=== PATIENT | female | born 1995 | race Caucasian/White ===

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

== ENCOUNTER 2017-01-31 05:30 | Inpatient (IN) | payer OTHER ==
[2017-01-31] MEDS ORDERED: ELECTROLYTE-148 SOLN 500 ML IV ONE (06:00)
[2017-01-31 06:07] VITALS: BMI 31.7
[2017-01-31] MEDS ORDERED: CITRIC ACID/SODIUM CITRATE 30 ML UNIT-DOSE CUP PO ONE (06:23)
[2017-01-31] MEDS ORDERED: ELECTROLYTE-148 SOLN 1,000 ML IV SCH (06:30)
--- NOTE | 2017-01-31 07:50 | HP ---
Past Medical History - Primary Care Physician PCP:: Braulio Rodriguez - Admission Chief Complaint: 39 weeks, GBS positve, teen , request of c/ s History of Present Illness: 21 yo f g 1p0 edc by sono 02/05/17 with hx of GBS , declines vaginal delivery, requesting repeat c/s ,patient was advised vaginal delivery, GBS prophylaxes was discussed ,insisting to have c/s, risks of c/s discussed in detail with patient, risks of DVT, bleeding, infection, risks with feature and discussed, still refuse to have vaginal delivery History Source: Patient Limitations to Obtaining History: No Limitations - Past Medical History ...: 1 ...Para: 0 ...LMP: 05/01/16 ... Weeks Gestation by Dates: 39.2 ...EDC by Dates: 02/05/17 ...EDC by Sono: 02/05/17 - Past Surgical History Hx Myomectomy: No Hx Transabdominal Cerclage: No - Smoking History Smoking history: Never smoked Have you smoked in the past 12 months: No Aproximately how many cigarettes per day: 0 - Alcohol/Substance Use Hx Alcohol Use: No - Social History Usual Living Arrangement: Yes: With Spouse History of Recent Travel: No Home Medications - Allergies Allergies/Adverse Reactions: Allergies Allergy/AdvReac Type Severity Reaction Status Date / Time No Known Allergies Allergy Verified 01/19/17 23:21 - Home Medications Home Medications: Ambulatory Orders Vit Calc,Iron,Folic [ Vitamins] 1 each PO DAILY 01/19/17 Review of Systems - Review of Systems Constitutional: reports: No Symptoms Eyes: reports: No Symptoms HENT: reports: No Symptoms Neck: reports: No Symptoms Cardiovascular: reports: No Symptoms Respiratory: reports: No Symptoms Gastrointestinal: reports: No Symptoms Genitourinary: reports: No Symptoms Breasts: reports: No Symptoms Reported Musculoskeletal: reports: No Symptoms Integumentary: reports: No Symptoms Neurological: reports: No Symptoms Endocrine: reports: No Symptoms Hematology/Lymphatic: reports: No Symptoms Psychiatric: reports: No Symptoms 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 - Maternity Vital Signs: Vital Signs Temperature 99 F 01/31/17 05:30 Pulse Rate 93 H 01/31/17 05:30 Respiratory Rate 20 01/31/17 05:30 Blood Pressure 137/61 01/31/17 05:30 O2 Sat by Pulse Oximetry (%) Constitutional: Yes: Well Nourished, No Distress, Calm Eyes: Yes: WNL, Conjunctiva Clear, EOM Intact HENT: Yes: WNL, Atraumatic, Normocephalic Neck: Yes: WNL, Supple, Trachea Midline Cardiovascular: Yes: WNL, Regular Rate and Rhythm Breast(s): Yes: WNL - Abdominal Exam/OB Fundal Height: 40 Number of Fetuses: Single Presentation: Vertex Contractions: No Regularity: Irritability Intensity: Unaware Monitor Mode: External Heart Rate Location: [facility] Category: I Accelerations: Uniform Decelerations: None - Vaginal Exam/OB Vaginal Bleediing: No Speculum Exam: No Dilatation (cm): closed Effacement (%): long Amniotic Membrane Status: Intact Presentation: Vertex/Position Station: -4 - 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 Edema: Yes Edema: LLE: 1+, RLE: 1+ Deep Tendon Reflex Grade: Normal +2 Psychiatric: Yes: WNL Hemorrhage Risk Assessment - Risk Factors Medium Risk Factors: Yes: None High Risk Factors: Yes: None Risk Score: 1 Risk Level: Medium Risk Problem List - Problems (1) with 39 completed weeks gestation Code(s): Z3A.39 - 39 WEEKS GESTATION OF (2) Group B streptococcal infection during Code(s): O98.819 - OTH MATERNAL INFEC/PARASTC DISEASES COMP PREG, UNSP TRI B95.1 - STREPTOCOCCUS, GROUP B, CAUSING DISEASES CLASSD ELSWHR (3) Delivery by elective section Code(s): O82 - ENCOUNTER FOR DELIVERY WITHOUT INDICATION (4) Large for gestational age fetus affecting mother, antepartum, third trimester, single gestation Code(s): O36.63X0 - MATERNAL CARE FOR EXCESS GROWTH, THIRD TRIMESTER, UNSP Assessment/Plan c/section risks discussed in detail
[2017-01-31] MEDS ORDERED: oxyCODONE HCL 5 MG TABLET PO PRN (08:43)
[2017-01-31] MEDS ORDERED: diphenhydrAMINE HCL 25 MG CAPSULE (FP) PO PRN (08:43)
[2017-01-31] MEDS ORDERED: BENZOCAINE 20% 57 GM BOTTLE TP PRN (08:43)
[2017-01-31] MEDS ORDERED: METHYLERGONOVINE MALEATE 0.2 MG/1 ML AMP IM PRN (08:43)
[2017-01-31] MEDS ORDERED: WITCH HAZEL 50% (TUCKS) 40 PAD/JAR PAD TP PRN (08:43)
[2017-01-31] MEDS ORDERED: BENZOCAINE 28 GM HEMORRHOIDAL OINTMENT PR PRN (08:43)
[2017-01-31] MEDS: OXYTOCIN 20 UNITS in 0.9% NS 1,000 ML IV SCH ×2 (08:45→15:37)
[2017-01-31] MEDS ORDERED: DEXTROSE 5%-LACTATED RINGERS 1,000 ML IV SCH (08:45)
[2017-01-31 08:48] LABS: ARTERIAL BLOOD GAS BASE EXCESS -0.7 meq/l (-2-2); ARTERIAL BLOOD GAS HCO3 26.2 meq/L (22-26)
[2017-01-31 08:50] LABS: ART PUNCT SITE OTHER; ARTERIAL BLOOD GAS BASE EXCESS -1.1 meq/l (-2-2); ARTERIAL BLOOD GAS HCO3 23.6 meq/L (22-26); ARTERIAL BLOOD GAS PO2 12.6 mmHg (80-100); ARTERIAL BLOOD GAS PO2 28.5 mmHg (80-100); ARTERIAL BLOOD GAS pH 7.37 (7.35-7.45); LPM/O2% 21%; PT. ON O2? n; TYPE OF O2 R/A
[2017-01-31 08:52] LABS: ART PUNCT SITE OTHER; LPM/O2% 21%; PT. ON O2? NO; TYPE OF O2 R/A
[2017-01-31 08:53] LABS: ARTERIAL BLD GAS O2 SATURATION 62.6 % (90-98.9)
[2017-01-31] MEDS ORDERED: ONDANSETRON 4 MG/2 ML VIAL IVPB PRN (09:02)
[2017-01-31] MEDS ORDERED: ACETAMINOPHEN 1000 MG/100 ML VIAL (NON FORMULARY) IVPB ONE (09:04)
[2017-01-31] MEDS ORDERED: CEFAZOLIN 1 GM/D5W 50 ML IVPB SCH (10:00)
[2017-01-31] MEDS: IBUPROFEN 800 MG/8 ML IJ IVPB PRN ×2 (12:00→21:30)
[2017-01-31] MEDS ORDERED: ceFAZolin SODIUM 1 GM VIAL ONE ×2 (16:49→23:50)
[2017-01-31] MEDS ORDERED: DEXTROSE 5%-WATER - 50 ML IVPB ONE ×2 (16:49→23:50)
[2017-01-31] MEDS: CEFAZOLIN 1 GM in DEXTROSE 5%-WATER - 50 ML IVPB SCH (16:54)
[2017-02-01] MEDS: CEFAZOLIN 1 GM in DEXTROSE 5%-WATER - 50 ML IVPB SCH (00:08)
[2017-02-01] MEDS: IBUPROFEN 600 MG TABLET (FP) PO PRN ×3 (04:08→20:35)
[2017-02-01] MEDS: SIMETHICONE 80 MG TAB.CHEW (FP) PO PRN ×2 (04:08→20:35)
[2017-02-01 07:42] LABS: BASOPHIL 0.5 % (0-2.0); EOSINOPHIL 3.4 % (0-4.5); MCH 27.6 pg (25.7-33.7); MCHC 33.6 g/dl (32.0-36.0); MEAN CELL VOLUME 82.1 fl (80-96); MEAN PLT VOLUME 8.4 fl (7.5-11.1); NEUTROPHILS 69.4 % (42.8-82.8); PLATELET COUNT 212 K/MM3 (134-434); RDW 13.9 % (11.6-15.6); WHITE BLOOD COUNT 10.6 K/mm3 (4.0-10.0)
[2017-02-01] MEDS ORDERED: BISACODYL 10 MG SUPP.RECT PR PRN (08:43)
--- NOTE | 2017-02-01 10:03 | PN ---
Post Progress Note - Subjective Subjective: 21 yo Para 1, status post primary , seen and evaluated. Doing well. Post Day: 1 Type of Delivery: Primary C/S Vital Signs: Vital Signs Temperature 98 F 02/01/17 06:24 Pulse Rate 60 02/01/17 06:24 Respiratory Rate 18 02/01/17 08:00 Blood Pressure 109/60 02/01/17 06:24 O2 Sat by Pulse Oximetry (%) 100 01/31/17 10:10 Breast Exam: Yes: Soft Uterus: Yes: Fundus Firm Incision: Yes: Dressing dry and intact Abdomen/GI: Yes: Abdomen soft, Tolerating PO Lochia: Yes: Rubra Lochia, amount: Small Extremities: Yes: Calves non-tender Perineum: Yes: Intact Activity: Ambulating - Labs Labs: CBC WBC 10.6 K/mm3 (4.0-10.0) H 02/01/17 06:00 RBC 3.52 M/mm3 (3.60-5.2) L 02/01/17 06:00 Hgb 9.7 GM/dL (10.7-15.3) L D 02/01/17 06:00 Hct 28.9 % (32.4-45.2) L D 02/01/17 06:00 MCV 82.1 fl (80-96) 02/01/17 06:00 MCH 27.6 pg (25.7-33.7) 02/01/17 06:00 MCHC 33.6 g/dl (32.0-36.0) 02/01/17 06:00 RDW 13.9 % (11.6-15.6) 02/01/17 06:00 Plt Count 212 K/MM3 (134-434) 02/01/17 06:00 MPV 8.4 fl (7.5-11.1) 02/01/17 06:00 Neutrophils % 69.4 % (42.8-82.8) 02/01/17 06:00 Lymphocytes % 18.0 % (8-40) 02/01/17 06:00 Monocytes % 8.7 % (3.8-10.2) 02/01/17 06:00 Eosinophils % 3.4 % (0-4.5) D 02/01/17 06:00 Basophils % 0.5 % (0-2.0) 02/01/17 06:00 Assessment/Plan Status post primary Stable Ambulation Analgesia PRN pain Continue routine Post op care
[2017-02-01] MEDS: oxyCODONE HCL 5 MG TABLET PO PRN ×2 (12:39→20:35)
--- NOTE | 2017-02-01 13:08 | PN ---
Progress Note (short form) - Note Progress Note: ANESTHESIOLOGY POST-OP CHECK 21F s/p under spinal anesthesia, POD #1: No acute complaints. Denies N /V, backache, headache. Pain 6/10 and tolerable. Voiding, ambulating, tolerating PO. Vital Signs Temperature 97.6 F 02/01/17 10:00 Pulse Rate 95 H 02/01/17 10:00 Respiratory Rate 20 02/01/17 10:00 Blood Pressure 130/70 02/01/17 10:00 O2 Sat by Pulse Oximetry (%) 100 01/31/17 10:10 Active Medications Benzocaine (Americaine Ointment -) 1 applic ND PRN PRN PRN Reason: PAIN Benzocaine (Americaine 20% [place] -) 1 spray TP PRN PRN PRN Reason: PAIN Bisacodyl (Dulcolax Suppository -) 10 mg ND PRN PRN PRN Reason: CONSTIPATION Diphenhydramine HCl (Benadryl -) 25 mg PO Q8H PRN PRN Reason: FOR ITCHING Diphenhydramine HCl (Benadryl Injection -) 25 mg IVPUSH Q4H PRN PRN Reason: Pruritis Enoxaparin Sodium (Lovenox -) 40 mg SQ DAILY ALICE Parenteral Electrolytes (Plasma-Lyte 148 -) 1,000 mls @ 125 mls/hr IV ASDIR ALICE Last Admin: 01/31/17 07:00 Dose: 125 mls/hr Dextrose/Lactated Ringer's (D5-Lr -) 1,000 mls @ 125 mls/hr IV ASDIR [facility] Ibuprofen (Motrin -) 600 mg PO Q4H PRN PRN Reason: PAIN Last Admin: 02/01/17 04:08 Dose: 600 mg Methylergonovine Maleate (Methergine Injection -) 0.2 mg IM Q4H PRN PRN Reason: EXCESSIVE BLEEDING Oxycodone HCl (Roxicodone -) 5 mg PO Q4H PRN PRN Reason: PAIN LEVEL 1-5 Oxycodone HCl (Roxicodone -) 10 mg PO Q4H PRN PRN Reason: PAIN LEVEL 6-10 Last Admin: 02/01/17 12:39 Dose: 10 mg Senna/Docusate Sodium (Pericolace -) 2 tablet PO HS PRN PRN Reason: CONSTIPATION Simethicone (Mylicon -) 80 mg PO Q4H PRN PRN Reason: GAS Last Admin: 02/01/17 04:08 Dose: 80 mg Witch Kim/Glycerin (Tucks Pads -) 1 pad TP PRN PRN PRN Reason: PAIN Gen: awake, alert No apparent anesthesia complications. Pain controlled. Continue management as per primary team.
[2017-02-01] MEDS: SENNOSIDES/DOCUSATE COMBO (SENNA PLUS) TABLET (UD) PO PRN (20:35)
[2017-02-02] MEDS: ENOXAPARIN NA (PORCINE) 40 MG/0.4 ML DISP.SYRIN SQ SCH (09:26)
[2017-02-02] MEDS: IBUPROFEN 600 MG TABLET (FP) PO PRN ×3 (09:26→22:19)
[2017-02-02] MEDS: SIMETHICONE 80 MG TAB.CHEW (FP) PO PRN ×3 (09:27→22:19)
[2017-02-02] MEDS: oxyCODONE HCL 5 MG TABLET PO PRN ×3 (09:28→22:19)
--- NOTE | 2017-02-02 21:39 | PN ---
Post Progress Note - Subjective Subjective: 21 yo Para 1, status post , seen and evaluated. She's doing well. Post Day: 2 Type of Delivery: Primary C/S Vital Signs: Vital Signs Temperature 97.9 F 02/02/17 09:17 Pulse Rate 96 H 02/02/17 09:17 Respiratory Rate 20 02/02/17 09:17 Blood Pressure 122/67 02/02/17 09:17 O2 Sat by Pulse Oximetry (%) 100 01/31/17 10:10 Breast Exam: Yes: Soft Uterus: Yes: Fundus Firm Incision: Yes: [place]ina intact Abdomen/GI: Yes: Abdomen soft, Tolerating PO Lochia: Yes: Rubra Lochia, amount: Small Extremities: Yes: Calves non-tender Perineum: Yes: Intact Activity: Ambulating - Labs Labs: CBC WBC 10.6 K/mm3 (4.0-10.0) H 02/01/17 06:00 RBC 3.52 M/mm3 (3.60-5.2) L 02/01/17 06:00 Hgb 9.7 GM/dL (10.7-15.3) L D 02/01/17 06:00 Hct 28.9 % (32.4-45.2) L D 02/01/17 06:00 MCV 82.1 fl (80-96) 02/01/17 06:00 MCH 27.6 pg (25.7-33.7) 02/01/17 06:00 MCHC 33.6 g/dl (32.0-36.0) 02/01/17 06:00 RDW 13.9 % (11.6-15.6) 02/01/17 06:00 Plt Count 212 K/MM3 (134-434) 02/01/17 06:00 MPV 8.4 fl (7.5-11.1) 02/01/17 06:00 Neutrophils % 69.4 % (42.8-82.8) 02/01/17 06:00 Lymphocytes % 18.0 % (8-40) 02/01/17 06:00 Monocytes % 8.7 % (3.8-10.2) 02/01/17 06:00 Eosinophils % 3.4 % (0-4.5) D 02/01/17 06:00 Basophils % 0.5 % (0-2.0) 02/01/17 06:00 Assessment/Plan Status post primary Stable Ambulation Analgesia PRN pain Continue routine Post op care Consider D/C home tomorrow
[2017-02-02] MEDS: SENNOSIDES/DOCUSATE COMBO (SENNA PLUS) TABLET (UD) PO PRN (22:20)
[2017-02-03 07:28] LABS: BASOPHIL 0.6 % (0-2.0); MCH 27.3 pg (25.7-33.7); MCHC 33.3 g/dl (32.0-36.0); MEAN PLT VOLUME 7.8 fl (7.5-11.1); PLATELET COUNT 262 K/MM3 (134-434); RDW 13.9 % (11.6-15.6); WHITE BLOOD COUNT 8.5 K/mm3 (4.0-10.0)
--- NOTE | 2017-02-03 07:54 | DS ---
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 Vital Signs: Vital Signs Temperature 98.6 F 02/02/17 22:00 Pulse Rate 85 02/02/17 22:00 Respiratory Rate 18 02/02/17 22:00 Blood Pressure 135/70 02/02/17 22:00 O2 Sat by Pulse Oximetry (%) 100 01/31/17 10:10 Constitutional: Yes: Well Nourished Eyes: Yes: Conjunctiva Clear HENT: Yes: Atraumatic Neck: Yes: Supple, Trachea Midline Cardiovascular: Yes: Regular Rate and Rhythm Respiratory: Yes: Regular, CTA Bilaterally Gastrointestinal: Yes: Normal Bowel Sounds Vaginal Exam: Yes: Normal Cervix: Yes: Normal Uterus: Yes: Normal Wound/Incision: Yes: Well Approximated Neurological: Yes: Alert, Oriented ...Motor Strength: WNL Psychiatric: Yes: Alert, Oriented Delivery - Delivery Type of Anesthesia: Spinal Episiotomy/Laceration: None EBL (cc): 500 Delivery, Single - Stages of Labor Date of Delivery: 01/31/17 Time of Delivery: 08:12 Time Placenta Delivered: 08:13 - 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 Intern Present: No Infant Gender: Male Weight: 8 lb 13 oz Position: Left, OT Total Hours ROM (Hrs/Mins): 0/2 - 1 Minute Total Score: 9 5 Minutes Total Score: 9 - [place] Feeding Plan Initial Plan: Exclusive throughout hospitalization Discharge Summary Reason For Visit: SCHEDULED Current Active Problems Delivery by elective section (Acute) Group B streptococcal infection during (Acute) Large for gestational age fetus affecting mother, antepartum, third trimester, single gestation (Acute) with 39 completed weeks gestation (Acute) Procedures: Principal: Primary Low transverse Hospital Course: Routine Post op care - Instructions Diet, Activity, Other Instructions: Regular diet Wound care F/U in clinic in one week Disposition: HOME - Home Medications Comprehensive Discharge Medication List: Ambulatory Orders Vit Calc,Iron,Folic [ Vitamins] 1 each PO DAILY 01/19/17
[2017-02-03 08:15] VITALS: BP 110/48; PULSE 78; TEMP 98.5
[2017-02-03] MEDS: SIMETHICONE 80 MG TAB.CHEW (FP) PO PRN (10:32)
[2017-02-03] MEDS: IBUPROFEN 600 MG TABLET (FP) PO PRN (10:33)
[2017-02-03] MEDS: ENOXAPARIN NA (PORCINE) 40 MG/0.4 ML DISP.SYRIN SQ SCH (10:34)
[2017-02-03] MEDS ORDERED: oxyCODONE HCL 5 MG TABLET ONE (10:39)
--- NOTE | 2017-02-04 08:37 | OP ---
DATE OF OPERATION: 01/31/2017 PREOPERATIVE DIAGNOSIS: at 39 weeks, large for gestational age, group B streptococcus positive, request of section. POSTOPERATIVE DIAGNOSIS: at 39 weeks, large for gestational age, group B streptococcus positive, request of section. PROCEDURE: Primary low segment transverse section. SURGEON: Braulio Rodriguez MD BATCH ROOM TECHNICIAN: CODY Barone ANESTHESIA: Spinal. ESTIMATED BLOOD LOSS: 500 mL. OPERATIVE PROCEDURE: The patient was taken to the operating room, had adequate spinal anesthesia. Abdomen and perineum were prepped and draped. Pfannenstiel abdominal incision was made. Abdominal wall was cut layer by layer until peritoneum was exposed and incised. Upon entering the abdominal cavity, lower uterine segment was identified and ureterovesical fold of peritoneum established. Bladder was pushed down. Then a low transverse uterine incision was made. Incision extended laterally. The amniotic sac was entered, clear fluid, head delivered. Nasopharynx was suctioned and live baby was delivered without any difficulty. Placenta was delivered manually. Uterine cavity was cleaned out of any tissue. Uterine incision was closed in 2 layers, first layer 0 Biosyn continuous suture, the second layer with 0 Biosyn imbricating the first layer. Bladder flap was closed with 0 Biosyn continuous suture. Both tubes and ovaries were checked and normal. No active bleeding was seen. All the lap pads, sponge counts, instrument counts were correct. Then peritoneum was closed with 0 Biosyn continuous suture. Muscles were brought together with interrupted suture of 0 Biosyn. Fascia was closed with 0 Biosyn continuous suture, subcutaneous fat with interrupted supine of 0 Biosyn, and the skin was closed with denia. Patient tolerated the procedure well, left the OR in good condition. Arnaldo [id number]
--- NOTE | 2017-02-06 08:45 | PATH ---
Surgical Pathology Report Patient Name: LITZY SINGH Med. Rec. #: [id number] /Age/Gender: 1995 (Age: 21) / F Account: [id number] Location: [facility] OBS/AUTOMATION QA TESTER Taken: 01/31/2017 Received: 02/03/2017 Reported: 02/06/2017 Physicians: Braulio Rodriguez M.D. Specimen(s) Received PLACENTA Clinical History , 39.2 weeks, elective c/section Primary c/section Final Diagnosis PLACENTA, DELIVERY: FOCALLY DISRUPTED THIRD TRIMESTER PLACENTA WITH MODERATE PREVILLOUS, PERIVILLOUS, AND PRECHORIONIC FIBRIN DEPOSITION, THREE VESSEL UMBILICAL CORD, AND UNREMARKABLE PLACENTAL MEMBRANES. Electronically Signed Yan Rebollar M.D. Gross Description The specimen is received fresh, labeled "placenta" and is a 685 gram, 17.0 x 16.0 x 2.6 cm placenta with attached membranes and umbilical cord. The attached membranes are veras, translucent with focal opacities and insert marginally. The umbilical cord measures 17 cm in length and averages 1.3 cm in diameter. The cord inserts eccentrically, 4.5 cm to the nearest margin. No true knots or strictures are identified. Cut surface of the umbilical cord reveals 3 vessels. The surface is arias-blue with fibrin deposition and appropriate caliber vessels. The maternal surface is red-brown with focal defects. Sectioning reveals red-brown, spongy parenchyma. No focal lesions are identified. Ed Educational Aide sections are submitted in three cassettes as follows: 1- membrane rolls and umbilical cord; 2-3- full thickness sections of placenta. 02/04/2017 [facility]02/04/2017
== END 2017-02-03 15:00 | disposition home or self-care (01) | DRG 540 ==
LOC: JLDR 05:30 → J3W 14:31
PROVIDERS: ADMIT Obstetrics & Gynecology; ATTEND Obstetrics & Gynecology
PROC: 10D00Z1 Extraction of Products of Conception, Low, Open Approach (ICD-10-PCS; principal; 2017-01-31)
DX: O36.63X0 Maternal care for excessive fetal growth, third trimester, not applicable or unspecified (principal); Z3A.39 39 weeks gestation of pregnancy; Z22.330 Carrier of Group B streptococcus; Z37.0 Single live birth
CPT/HCPCS: 36415; 36600; 82803; 85025; 88307-TC

== ENCOUNTER 2017-02-19 15:31 | Emergency (ER) | payer OTHER ==
[2017-02-19 16:09] VITALS: BP 113/78; PULSE 84; TEMP 98.2; BMI 28.8
[2017-02-19 16:50] LABS: BASOPHIL 0.5 % (0-2.0); EOSINOPHIL 3.5 % (0-4.5); MCH 26.8 pg (25.7-33.7); MCHC 32.6 g/dl (32.0-36.0); MEAN CELL VOLUME 82.1 fl (80-96); NEUTROPHILS 79.7 % (42.8-82.8); PLATELET COUNT 350 K/MM3 (134-434); RDW 15.6 % (11.6-15.6); WHITE BLOOD COUNT 14.5 K/mm3 (4.0-10.0)
--- NOTE | 2017-02-19 16:51 | PDOC ---
History of Present Illness - General Chief Complaint: Wound Stated Complaint: POST-SURG COMPLICATIONS, BLEEDING Time Seen by Provider: 02/19/17 16:21 History Source: Patient Exam Limitations: No Limitations - History of Present Illness Initial Comments: 02/19/17 16:47 Patient is a 21-year-old female, 2 weeks ago presents for evaluation of scar reports green discharge from right side 3 days ago.. Patient reports also not feeling well vomited once today no fever, is complaining of lower abdominal discomfort near area of . Has not taken any pain medication. No diarrhea, no dizziness, no neurosensory deficits. Denies any chest pain or shortness of breath. Normal BM. Past Medical History: Denies. Allergies: No known allergies Medications: Oxycodone when necessary last taken one week ago Family History: Non-contributory Social History: Denies smoking, alcohol use, or IVDU Vital signs on arrival are notable for pulse of 84. Review of Systems GENERAL/CONSTITUTIONAL: No fever or chills. No weakness. No weight change. HEAD, EYES, EARS, NOSE AND THROAT: No change in vision. No ear pain or discharge. No sore throat. CARDIOVASCULAR: No chest pain or shortness of breath. RESPIRATORY: No cough, wheezing, or hemoptysis. GASTROINTESTINAL: Vomited once, no nausea upon arrival, no diarrhea or constipation. No rectal bleeding. GENITOURINARY: No dysuria, frequency, or change in urination. MUSCULOSKELETAL: No joint or muscle swelling or pain. No neck or back pain. SKIN AND BREASTS: scar with drainage 3 days ago to right side. With edematous border of scar with no induration. NEUROLOGIC: No headache, vertigo, loss of consciousness, or loss of sensation. HEMATOLOGIC/LYMPHATIC: No anemia, easy bleeding, or history of blood clots. ALLERGIC/IMMUNOLOGIC: No hives or skin allergy. No latex allergy. 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: GENERAL: The patient is awake, alert, and fully oriented, in no acute distress. EYES: Pupils equal, round and reactive to light, extraocular movements intact, sclera anicteric, conjunctiva clear. ENT: Ears normal, nares patent, oropharynx clear without exudates. Moist mucous membranes. No uvula deviation NECK: Normal range of motion, supple without lymphadenopathy, JVD, or masses. LUNGS: Breath sounds equal, clear to auscultation bilaterally. No wheezes, and no crackles. HEART: Regular rate and rhythm, normal S1 and S2 without murmur, rub or gallop. ABDOMEN: Soft, tender to mid lower quadrant. Normoactive bowel sounds. No guarding, no rebound. No masses. No bruising or abrasions MUSCULOSKELETAL: Normal range of motion, no edema. No clubbing or cyanosis. No cords, erythema, or tenderness. No CVA Tenderness with fist. NEUROLOGICAL: Cranial nerves II through XII grossly intact. Normal speech, normal gait. SKIN: Warm, Dry, normal turgor, no rashes or lesions noted. scar is intact upon assessment there is no green drainage noted. No foul odor. No erythema, warmth or induration. Past History - Past Medical History Allergies/Adverse Reactions: Allergies Allergy/AdvReac Type Severity Reaction Status Date / Time No Known Allergies Allergy Verified 02/19/17 16:09 Home Medications: Ambulatory Orders Vit Calc,Iron,Folic [ Vitamins] 1 each PO DAILY 01/19/17 Dicloxacillin Sodium 500 mg PO TID #30 capsule 02/19/17 Asthma: No Cancer: No Cardiac Disorders: No Diabetes: No HTN: No Seizures: No Thyroid Disease: No - Reproductive History (#): 1 Para: 0 - Psycho/Social/Smoking Cessation Hx Suicidal Ideation: No Smoking History: Current some day smoker Have you smoked in the past 12 months: No Number of Cigarettes Smoked Daily: 5 Information on smoking cessation initiated: No Hx Alcohol Use: No Drug/Substance Use Hx: No Substance Use Type: None Hx Substance Use Treatment: No *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 - Vital Signs Last Vital Signs Temp Pulse Resp BP Pulse Ox 98.2 F 84 20 113/78 98 02/19/17 16:06 02/19/17 16:06 02/19/17 16:06 02/19/17 16:06 02/19/17 16:06 ED Treatment Course - LABORATORY CBC & Chemistry Diagram: 02/19/17 16:40 02/19/17 16:40 Medical Decision Making - Medical Decision Making 02/19/17 16:51 A/P: Patient here for evaluation of possible wound dehiscence however based upon clinical examination there is no evidence of cellulitis or wound dehiscence. There is no drainage. Patient states she did shower today and has not had any discoloration or drainage. Non malodorous. Because of patient vomiting once and lower abdominal discomfort. Urinalysis, urine culture, CBC and BMP. 02/19/17 17:25 Laboratory Results - last 24 hr 02/19/17 02/19/17 02/19/17 16:40 16:40 16:40 WBC 14.5 H D RBC 4.81 D Hgb 12.9 D Hct 39.5 D MCV 82.1 MCH 26.8 MCHC 32.6 RDW 15.6 D Plt Count 350 D MPV 8.0 Neutrophils % 79.7 D Lymphocytes % 11.4 D Monocytes % 4.9 Eosinophils % 3.5 Basophils % 0.5 Sodium 140 Potassium 4.1 Chloride 106 Carbon Dioxide 27 D Anion Gap 7 L BUN 9 Creatinine 0.6 Random Glucose 82 Calcium 8.7 Urine Color Yellow Urine Appearance Clear Urine pH 6.0 Urine Protein Negative Urine Glucose (UA) Negative Urine Ketones Negative Urine Blood Negative Urine Nitrite Negative Urine Bilirubin Negative Urine Urobilinogen Negative Urine analysis is negative, patient with elevated wbc's case discussed with Dr. Hwang. Dr. Guevara to care Patient while she was admitted during the C- section. Because of drainage from wound, will give 1 g of Ancef while in emergency department discharged on dicloxacillin 500 mg by mouth twice a day with strict follow-up with Dr. Rodriguez in 3 days. If any fever, increased pain, or any other concerns patient to return immediately to emergency department. 02/19/17 18:36 *DC/Admit/Observation/Transfer Diagnosis at time of Disposition: section wound complication - Discharge Dispostion Disposition: HOME Condition at time of disposition: Good Admit: No - Prescriptions Prescriptions: Dicloxacillin Sodium 500 mg PO TID #30 capsule - Referrals Referrals: Braulio Rodriguez MD [Staff Physician] - - Patient Instructions Additional Instructions: Please monitor area for any increased redness swelling or signs of infection Antibiotics as ordered until completed If fever, increased pain, and generalized malaise, or feeling of not getting better return to ER recommend follow-up with Dr. Rodriguez within a week
[2017-02-19 16:52] LABS: URINE APPEARANCE CLEAR; URINE BILIRUBIN NEGATIVE (NEGATIVE); URINE BLOOD NEGATIVE (NEGATIVE); URINE COLOR YELLOW; URINE GLUCOSE (UA) NEGATIVE (NEGATIVE); URINE KETONE NEGATIVE (NEGATIVE); URINE LEUK ESTERASE NEGATIVE (NEGATIVE); URINE NITRITE NEGATIVE (NEGATIVE); URINE PROTEIN NEGATIVE (NEGATIVE); URINE UROBILINOGEN NEGATIVE mg/dL (0.2-1.0)
[2017-02-19 17:10] LABS: ANION GAP 7 (8-16); CALCIUM 8.7 mg/dL (8.5-10.1); CO2 27 mmol/L (21-32); CREATININE 0.6 mg/dL (0.55-1.02); GLUCOSE,RANDOM 82 mg/dL (74-106)
[2017-02-19] MEDS ORDERED: CEFAZOLIN 1 GM in DEXTROSE 5%-WATER - 50 ML IVPB ONE (17:16)
[2017-02-19] MEDS ORDERED: CEFAZOLIN (PRE-DOCKED) 50 ML IVPB ONE (17:37)
== END 2017-02-19 18:47 | disposition home or self-care (01) ==
LOC: JERFT 15:31
DX: O86.0 Infection of obstetric surgical wound (principal)
CPT/HCPCS: 36415; 80048; 81003; 85025; 87086; 96365; 99281-25

== ENCOUNTER 2017-04-10 22:32 | Emergency (ER) | payer OTHER ==
[2017-04-10 22:43] VITALS: BP 127/56; PULSE 94; TEMP 98.2; BMI 28.1
[2017-04-10 23:59] LABS: BASOPHIL 0.7 % (0-2.0); EOSINOPHIL 2.7 % (0-4.5); MCH 26.8 pg (25.7-33.7); MCHC 33.8 g/dl (32.0-36.0); MEAN CELL VOLUME 79.3 fl (80-96); MEAN PLT VOLUME 7.6 fl (7.5-11.1); NEUTROPHILS 62.6 % (42.8-82.8); PLATELET COUNT 300 K/MM3 (134-434); WHITE BLOOD COUNT 7.6 K/mm3 (4.0-10.0)
--- NOTE | 2017-04-11 00:08 | PDOC ---
History of Present Illness - General Chief Complaint: Vaginal Bleeding Stated Complaint: vaginal bleeding Time Seen by Provider: 04/10/17 23:08 History Source: Patient Exam Limitations: No Limitations - History of Present Illness Initial Comments: 04/10/17 23:39 The patient is a 21F with no PMH who presents to the ED with complaints of vaginal bleeding. The patient states that she has had on and off bleeding for 3 months, since her . She states that her bleeding is every other day or every 2 days for 3 months. The most she has bled is 2-3 pads. She denies any vaginal discharge, pain from her site, CP, SOB, fever, chills, nausea , vomiting, and new rash. Past History - Past Medical History Allergies/Adverse Reactions: Allergies Allergy/AdvReac Type Severity Reaction Status Date / Time No Known Allergies Allergy Verified 02/19/17 16:09 Home Medications: Ambulatory Orders Vit Calc,Iron,Folic [ Vitamins] 1 each PO DAILY 01/19/17 Dicloxacillin Sodium 500 mg PO TID #30 capsule 02/19/17 Asthma: No Cancer: No Cardiac Disorders: No COPD: No Diabetes: No HTN: No Seizures: No Thyroid Disease: No - Reproductive History (#): 1 Para: 0 - Suicide/Smoking/Psychosocial Hx Smoking History: Current some day smoker Have you smoked in the past 12 months: Yes Number of Cigarettes Smoked Daily: 2 Information on smoking cessation initiated: No Hx Alcohol Use: No Drug/Substance Use Hx: No Substance Use Type: None Hx Substance Use Treatment: No Review of Systems - Review of Systems Able to Perform ROS?: Yes Comments:: 04/11/17 00:22 GENERAL/CONSTITUTIONAL: No fever or chills. No weakness. HEAD, EYES, EARS, NOSE AND THROAT: No change in vision. No ear pain or discharge. No sore throat. GASTROINTESTINAL: No nausea, vomiting, diarrhea, constipation, or abdominal pain. GENITOURINARY: Positive for vaginal bleeding. No dysuria, frequency, hematuria, or change in urination. CARDIOVASCULAR: No chest pain, palpitations, or lightheadedness. RESPIRATORY: No cough, wheezing, shortness of breath, or hemoptysis. MUSCULOSKELETAL: No joint or muscle swelling or pain. No neck or back pain. SKIN: No rash or lesions. NEUROLOGIC: No headache, numbness, tingling, weakness, loss of consciousness, or change in strength/sensation. ENDOCRINE: No increased thirst. No abnormal weight change. HEMATOLOGIC/LYMPHATIC: No anemia, easy bleeding, or history of blood clots. ALLERGIC/IMMUNOLOGIC: No hives or skin allergy. Is the patient limited Peruvian proficient: No *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 - Vital Signs Last Vital Signs Temp Pulse Resp BP Pulse Ox 98.2 F 94 H 18 127/56 100 04/10/17 22:40 04/10/17 22:40 04/10/17 22:40 04/10/17 22:40 04/10/17 22:40 - 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 Comments: 04/11/17 00:22 GENERAL: Well developed, well nourished. Awake and alert. No acute distress. HEENT: Normocephalic, atraumatic. Hearing grossly normal. Moist mucous membranes. Oropharynx is clear. NECK: Supple. Full ROM. No JVD. CARDIOVASCULAR: Regular rate and rhythm. No murmurs, rubs, or gallops. Distal pulses are 2+ and symmetric. PULMONARY: No evidence of respiratory distress. Lungs clear to auscultation bilaterally. No wheezing, rales or rhonchi. ABDOMINAL: Soft. Non-tender. Non-distended. No rebound or guarding. No organomegaly. Normoactive bowel sounds. GENITOURINARY: No CVA tenderness bilaterally. MUSCULOSKELETAL: Normal range of motion at all joints. No bony deformities or tenderness. EXTREMITIES: No cyanosis. No clubbing. No edema. No calf tenderness. SKIN: Warm and dry. Normal capillary refill. No rashes. No jaundice. NEUROLOGICAL: Alert, awake, appropriate. Normal speech. Gait is normal without ataxia. PSYCHIATRIC: Cooperative. Good eye contact. Appropriate mood and affect. ED Treatment Course - LABORATORY CBC & Chemistry Diagram: 04/10/17 23:45 04/10/17 23:45 - RADIOLOGY Radiology Studies Ordered: Category Date Time Status CHEST PA & LAT [RAD] Stat Radiology 04/10/17 23:27 Ordered Medical Decision Making - Medical Decision Making 04/11/17 00:23 The patient is a 21F s/p 3 months ago who is presenting with intermittent vaginal bleeding. I am not acutely concerned about the bleeding but will rule out occult causes such as fibroids, retained products, and infection. Will reassess when labs/imaging are complete. 04/11/17 03:21 U/S is negative. Patient is informed and informed that she should follow up with Dr. Rodriguez within the week for further workup. Patient agrees and is ready for d/c. *DC/Admit/Observation/Transfer Diagnosis at time of Disposition: Vaginal bleeding - Discharge Dispostion Disposition: HOME Condition at time of disposition: Stable Admit: No - Patient Instructions Printed Discharge Instructions: DI for Vaginal Bleeding Additional Instructions: Please return to the ER if symptoms persist, worsen, or new symptoms arise. Please follow up with Dr. Rodriguez in 2-3 days for further workup of your vaginal bleeding. Please return to the ER if you have any signs or symptoms of chest pain, shortness of breath, uncontrollable fever, chills, nausea, vomiting, numbness, tingling, or weakness in any part of your body, changes in vision, or slurred speech.
[2017-04-11 00:18] LABS: PH,URINE 7.5 (5.0-8.0); URINE APPEARANCE CLEAR; URINE BILIRUBIN NEGATIVE (NEGATIVE); URINE BLOOD TRACE-INTA (NEGATIVE); URINE COLOR LT. YELLOW; URINE GLUCOSE (UA) NEGATIVE (NEGATIVE); URINE KETONE NEGATIVE (NEGATIVE); URINE NITRITE NEGATIVE (NEGATIVE); URINE PROTEIN TRACE (NEGATIVE); URINE UROBILINOGEN 0.2 mg/dL (0.2-1.0)
[2017-04-11 01:02] LABS: ALBUMIN 4.2 g/dl (3.4-5.0); ALK PHOS 103 U/L (45-117); ANION GAP 11 (8-16); BILIRUBIN,TOTAL 0.3 mg/dL (0.2-1.0); CALCIUM 8.3 mg/dL (8.5-10.1); CO2 23 mmol/L (21-32); CREATININE 0.6 mg/dL (0.55-1.02); GLUCOSE,RANDOM 89 mg/dL (74-106); SGOT/AST 16 U/L (15-37); SGPT/ALT 24 U/L (12-78); TOT PROT 7.5 g/dl (6.4-8.2)
--- NOTE | 2017-04-11 01:45 | PDOC ---
Attending Attestation - Resident Resident Name: Jackson Mason - ED Attending Attestation I have performed the following: I have examined & evaluated the patient, The case was reviewed & discussed with the resident, I agree w/resident's findings & plan, Exceptions are as noted - HPI HPI: 04/11/17 01:41 Healthy 21-year-old female 3 months status post otherwise uneventful presents with persistence vaginal bleeding/spotting since her . Does not have heavy bleeding, has had regular periods as well. No notable change in terms of the amount of bleeding or pain, but presents for evaluation today. Has not had imaging since her delivery. No fevers or chills, no urinary complaints. No history of bleeding disorders. - Physicial Exam PE: 04/11/17 01:43 Vital signs stable. Abdomen is soft and nontender Pelvic per note - Medical Decision Making 04/11/17 01:43 21-year-old female with persistent vaginal bleeding/spotting for 3 months since . Hemodynamically stable, relatively low volume, not on control. Question retained products versus dysfunctional uterine bleeding versus fibroids. CBC shows normal hemoglobin, not Transvaginal ultrasound to rule out retained products or fibroids If above is within normal limits should probably follow-up with Dr. Rodriguez and consider OCPs for bleeding control
--- NOTE | 2017-04-11 08:24 | PDOC ---
Patient Follow-up (Call Back) - Post ED Follow - Up Condition at time of discharge: Stable Disposition at time of original discharge: HOME Reason for Call Back: Radiology (As per radiology, patient has a linear echogenic structure w/ surrounding fluid protruding into the endometrium that appears possibly man-made and cannot entirely rule out a foreign body. Of note , patient was seen in the ED for persistent vaginal bleed status post 3 months ago. Was told to follow-up with Dr. Medina of [facility]. Icalled patient at number on record and left a message to call me back directly today. Radiologist also to contact Dr. Medina to make him aware of report.)
[2017-04-11 09:49] LABS: URINE LEUK ESTERASE Negative (NEGATIVE)
--- NOTE | 2017-04-12 21:52 | PDOC ---
Patient Follow-up (Call Back) - Post ED Follow - Up Condition at time of discharge: Stable Disposition at time of original discharge: HOME Reason for Call Back: Radiology (Spoke to pt and made aware of US findings, states she continues to have some bleeding but not severe and no abdominal pain , nausea, vomiting, fever, chills, or dysuria. States she has upcoming CRO appointment and will follow-up. Reasons to return to the ER discussed with patient)
== END 2017-04-11 03:51 | disposition home or self-care (01) ==
LOC: SUPCPDRO 22:32 → JER 22:32
DX: O72.2 Delayed and secondary postpartum hemorrhage (principal)
CPT/HCPCS: 36415; 71020-TC; 76830-TC; 80053; 81003; 84702; 85025; 86850; 86900; 86901; 99283-25

== ENCOUNTER 2018-08-31 12:10 | Emergency (ER) | payer OTHER ==
[2018-08-31 12:27] VITALS: BP 112/85; PULSE 106; TEMP 98.1; BMI 30.4
--- NOTE | 2018-08-31 13:50 | PDOC ---
History of Present Illness - General Chief Complaint: Pain Stated Complaint: PAIN 16 WKS Time Seen by Provider: 08/31/18 13:13 - History of Present Illness Initial Comments: The pt is a 22 @ 15w5d by US, s/p C/S x1 who presents for evaluation of 4 days of R flank/abdominal pain and LLQ abdominal pain. The R flank pain is constant, cramping, radiates to her back and mid-abdomen, and is not associated with vaginal bleeding/discharge, dysuria, or hematuria. She states she has a L ovarian cyst and the pain felt there similar to that of her previous pain related to her cyst. Denies fevers/chills, CLEANING, vision changes, chest pain, SOB, V/D/C, or blood in her stool. She has yet to be able to establish OB care during this yet. 08/31/18 13:47 Past History - Past Medical History Allergies/Adverse Reactions: Allergies Allergy/AdvReac Type Severity Reaction Status Date / Time No Known Allergies Allergy Verified 08/31/18 14:45 Home Medications: Ambulatory Orders Vit Calc,Iron,Folic [ Vitamins] 1 each PO DAILY 01/19/17 Nitrofurantoin Monohyd/M-Cryst [Macrobid -] 100 mg PO BID #14 capsule 08/31/18 Nitrofurantoin Monohyd/M-Cryst [Macrobid -] 100 mg PO BID #14 capsule 08/31/18 Asthma: No Cancer: No Cardiac Disorders: No COPD: No Diabetes: No HTN: No Seizures: No Thyroid Disease: No - Reproductive History (#): 1 Para: 0 Therapeutic (s) & number: No - Suicide/Smoking/Psychosocial Hx Smoking History: Former smoker Have you smoked in the past 12 months: Yes Number of Cigarettes Smoked Daily: 2 Information on smoking cessation initiated: No Hx Alcohol Use: No Drug/Substance Use Hx: No Substance Use Type: None Hx Substance Use Treatment: No Review of Systems - Review of Systems Able to Perform ROS?: Yes Comments:: GENERAL/CONSTITUTIONAL: No fever or chills. No weakness HEAD, EYES, EARS, NOSE AND THROAT: No change in vision. No ear pain or discharge. No sore throat CARDIOVASCULAR: No chest pain or shortness of breath RESPIRATORY: Denies cough, hemoptysis GENITOURINARY: No dysuria, frequency, or change in urination MUSCULOSKELETAL: No joint or muscle swelling or pain. No neck or back pain SKIN: No rash NEUROLOGIC: No headache, vertigo, loss of consciousness, or change in strength/ sensation ENDOCRINE: No increased thirst. No abnormal weight change HEMATOLOGIC/LYMPHATIC: No anemia, easy bleeding, or history of blood clots ALLERGIC/IMMUNOLOGIC: No hives or skin allergy 08/31/18 13:50 Is the patient limited Greek proficient: No *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 - Vital Signs Last Vital Signs Temp Pulse Resp BP Pulse Ox 98.1 F 106 H 20 112/85 99 08/31/18 12:25 08/31/18 12:25 08/31/18 12:25 08/31/18 12:25 08/31/18 12:25 - 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 Comments: GENERAL: Awake, alert, and oriented to person/place/time, in no acute distress HEAD: No signs of trauma, normocephalic, atraumatic EYES: PERRLA, EOMI, sclera anicteric, conjunctiva clear ENT: Hearing grossly normal, nares patent, oropharynx clear without exudates. Moist mucosa LUNGS: No distress, speaks full sentences, clear to auscultation bilaterally HEART: Regular rate and rhythm, normal S1 and S2, no murmurs appreciated, peripheral pulses normal and equal bilaterally ABDOMEN: Soft, lower abdominal TTP w/o rebound or guarding; normoactive bowel sounds EXTREMITIES: Normal inspection, Normal range of motion, no edema. No clubbing or cyanosis NEUROLOGICAL: Cranial nerves II through XII grossly intact. Normal speech, no focal sensorimotor deficits SKIN: Warm, Dry External genitalia unremarkable Speculum exam with normal appearing whitish vaginal discharge, no blood visualized Vaginal wall mucosa is unremarkable Cervix visualized Bimanual exam without cervical motion tenderness, os closed, +R/L adenexal TTP 08/31/18 14:08 ED Treatment Course - LABORATORY CBC & Chemistry Diagram: 08/31/18 13:40 08/31/18 13:25 - RADIOLOGY Radiology Studies Ordered: Category Date Time Status LIMITED US [US] Stat Ultrasound 08/31/18 13:26 Ordered Medical Decision Making - Medical Decision Making The pt is a 22F at 15weeks who presents for evaluation of 4 days of cramping abdominal pain and concern for 'bleeing in the womb' after being evaluated 2 days ago in an ED in [place] ED Course CMP, CBC, Coags, T/S, Beta-quant UA Abdominal U/S to evaluate , RUQ, and R flank 08/31/18 14:13 Pt noted small amount of spotting as pt was going to U/S Will send UCx as pt w/ asymptomatic bacteriuria 08/31/18 15:57 Macrobid 100mg PO BID Rx sent to pt's pharmacy for bacteriuria in U/S's negative for acute pathology Plan for D/C w/ OB f/u Discharge instructions and return precautions given Pt in agreement and verbalized understanding Dispo: home 08/31/18 17:50 *DC/Admit/Observation/Transfer Diagnosis at time of Disposition: Abdominal pain affecting UTI (urinary tract infection) during Qualifiers: Trimester: first trimester Qualified Code(s): O23.41 - Unspecified infection of urinary tract in , first trimester - Discharge Dispostion Disposition: HOME Condition at time of disposition: Stable Decision to Admit order: No - Prescriptions Prescriptions: Nitrofurantoin Monohyd/M-Cryst [Macrobid -] 100 mg PO BID #14 capsule Nitrofurantoin Monohyd/M-Cryst [Macrobid -] 100 mg PO BID #14 capsule - Referrals Referrals: Pamela Ogden MD [Staff Physician] - Jenna Bolden MD [Staff Physician] - - Patient Instructions Printed Discharge Instructions: DI for Urinary Tract Infection (UTI), DI for Abdominal Pain -- Early Additional Instructions: You were seen in the Emergency Department for evaluation of abdominal pain. Your urine was significant for bacteriuria and a prescription for Macrobid was sent to [facility]. Review the handout provided at discharge, follow up with the referral provided. Return the Emergency Department if you develop fevers/chills, worsening pain, vaginal bleeding/discharge, vomiting, worsening symptoms, or any new/concerning symptoms. - Post Discharge Activity
[2018-08-31 13:57] LABS: HEMATOCRIT 35.4 % (32.4-45.2); HEMOGLOBIN 12.5 GM/dL (10.7-15.3); MCH 31.6 pg (25.7-33.7); MCHC 35.5 g/dl (32.0-36.0); MEAN CELL VOLUME 89.2 fl (80-96); MEAN PLT VOLUME 7.8 fl (7.5-11.1); PLATELET COUNT 258 K/MM3 (134-434); RBC 3.97 M/mm3 (3.60-5.2); RDW 13.3 % (11.6-15.6); WHITE BLOOD COUNT 8.8 K/mm3 (4.0-10.0)
[2018-08-31 14:19] LABS: INR 1.03 (0.83-1.09); PROTHROMBIN TIME (PATIENT) 12.2 SEC (9.7-13.0)
[2018-08-31 14:22] LABS: ACTIVATED PTT 31.9 SECONDS (25.2-36.5)
[2018-08-31 14:31] LABS: EPI CELLS 3.2 /HPF (0-5); HYALINE CASTS 3 /hpf (0-8); URINE APPEARANCE CLOUDY; URINE BACTERIA 236.556 /hpf (NEGATIVE); URINE BILIRUBIN NEGATIVE (NEGATIVE); URINE COLOR YELLOW; URINE GLUCOSE (UA) NEGATIVE (NEGATIVE); URINE KETONE TRACE (NEGATIVE); URINE LEUK ESTERASE TRACE (NEGATIVE); URINE NITRITE NEGATIVE (NEGATIVE); URINE PROTEIN NEGATIVE (NEGATIVE); URINE RBC 1 /hpf (0-4); URINE WBC 5 /hpf (0-5)
[2018-08-31 14:38] LABS: ALBUMIN 3.2 g/dl (3.4-5.0); ALK PHOS 71 U/L (45-117); ANION GAP 7 MMOL/L (8-16); BILIRUBIN,TOTAL 0.2 mg/dL (0.2-1); BLOOD UREA NITROGEN 8 mg/dL (7-18); CALCIUM 8.5 mg/dL (8.5-10.1); CHLORIDE 108 mmol/L (98-107); CO2 22 mmol/L (21-32); CREATININE 0.4 mg/dL (0.55-1.3); GLUCOSE,RANDOM 82 mg/dL (74-106); POTASSIUM 3.8 mmol/L (3.5-5.1); SGOT/AST 11 U/L (15-37); SGPT/ALT 14 U/L (13-61); SODIUM 137 mmol/L (136-145); TOT PROT 6.6 g/dl (6.4-8.2)
--- NOTE | 2018-08-31 14:50 | PDOC ---
Attending Attestation - Resident Resident Name: Dimas Suero - ED Attending Attestation I have performed the following: I have examined & evaluated the patient, The case was reviewed & discussed with the resident, I agree w/resident's findings & plan - HPI HPI: 08/31/18 14:46 Healthy 22-year-old female at about 15 weeks gestation presents for further evaluation of abdominal pain. Pain began about 3 or 4 days ago, was seen at an emergency department in [place] 2 days ago and was told she had "bleeding in the womb" and was encouraged to follow up with [facility] [employer] [employer]. She denies any vaginal bleeding, reports abdominal cramping as high as the right upper quadrant, not associated with any fever/chills/vomiting/diarrhea. Denies any urinary complaints. - Physicial Exam PE: 08/31/18 14:47 Afebrile, vital signs otherwise normal Well-appearing, alert, obese No jaundice or pallor Heart is regular, lungs are clear Abdomen is soft/nondistended. Palpable uterus above the pubic symphysis, nontender. Diffuse discomfort to palpation throughout the upper abdomen bilaterally with greatest tenderness appearing to be in the right upper quadrant /right CVA area. No rash. Bowel sounds are normal. Pelvic per resident. - Medical Decision Making 08/31/18 14:48 22-year-old female second trimester with 2-3 days of abdominal pain, diagnosed with some intrauterine bleed on ultrasound performed 2 days ago at outside ED, though exam localizes well above the uterus to the epigastric/right upper quadrant/right flank region. Question biliary disease, rule out gastritis or Gu etiology, will need to further identify intrauterine pathology. labs, ua u/s ruq/r kidney u/s reassess
[2018-08-31] MEDS ORDERED: ACETAMINOPHEN 325 MG TABLET (FP) PO ONE (15:03)
[2018-08-31] MEDS ORDERED: ACETAMINOPHEN 325 MG TABLET (FP) ONE (16:15)
== END 2018-08-31 17:53 | disposition home or self-care (01) ==
LOC: JER 12:10
DX: O26.892 Other specified pregnancy related conditions, second trimester (principal); O23.42 Unspecified infection of urinary tract in pregnancy, second trimester; Z3A.15 15 weeks gestation of pregnancy
CPT/HCPCS: 36415; 76705-TC; 76815-TC; 80053; 81003; 84702; 85027; 85610; 85730; 86850; 86900; 86901; 87086; 99283-25

== ENCOUNTER 2019-02-10 07:00 | Inpatient (IN) | payer OTHER ==
[2019-02-10 08:02] VITALS: BMI 32.5
[2019-02-10] MEDS ORDERED: ELECTROLYTE-148 SOLN 500 ML IV ONE (08:47)
[2019-02-10] MEDS ORDERED: CITRIC ACID/SODIUM CITRATE 30 ML UNIT-DOSE CUP PO ONE (08:47)
[2019-02-10] MEDS ORDERED: OXYTOCIN 20 UNITS in 0.9% NS 20 UNIT/1,000 ML INFUS.BAG IV ONE ×2 (08:51→10:34)
--- NOTE | 2019-02-10 09:05 | HP ---
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: Alzheimer's, CVA, Dementia, Migraine, Multiple Sclerosis, Peripheral Neuropathy, Parkinson's, Seizure, Syncope, TIA, Vertigo, Other Cardiovascular: No: AFIB, Aneurysm, Aortic Insufficiency, Aortic Stenosis, CAD, CHF, Deep Vein Thrombosis, HTN, Hyperlipdemia, [place], Mitral Insufficiency, Mitral Stenosis, Murmur, Pulmonary Hypertension, Other Pulmonary: No: Asthma, Bronchitis, Cancer, COPD, O2 Dependent, Pneumonia, Previously Intubated, Pulmonary Embolus, Pulmonary Fibrosis, Sleep Apnea, Other Gastrointestinal: No: Ascites, Cancer, Constipation, Crohn's Disease, Diverticulitis, Diverticulosis, Esophageal Varices, Gastritis, GERD, GI Bleed, Hemorrhoids, Hiatal Hernia, Inflamatory Bowel Disease, Irritable Bowel Disease, Pancreatitis, Peptic Ulcer Disease, Ulcerative Colitis, Other Hepatobiliary: No: Cirrhosis, Cholelithiasis, Cholecystitis, Choledocholithiasis , Hepatitis A, Hepatitis B, Hepatitis C, Other Reproductive: No: Ectopic , Endometriosis, Fibroids, PID, Polycystic Ovary Syndrome, Postmenopausal, Other ...: 2 ...Para: 1 ...Term: 1 ...: 0 ...Spon : 0 ...Induced : 0 ...Multiple Gestation: 0 ...LMP: 05/13/18 ... Weeks Gestation by Dates: 39 ...EDC by Dates: 02/17/19 ...EDC by Sono: 02/21/19 Heme/Onc: No: Anemia, B12 Deficiency, Bleeding Disorder, Cancer, Current Chemotherapy, Current Radiation Therapy, Hemochromatosis, Hypercoaguable State, Myeloproliferative Synd, Sickle Cell Disease, Sickle Cell Trait, Thrombocytopenia, Other Infectious Disease: No: AIDS, C-Diff, Herpes Zoster, HIV, MRSA, STD's, Tuberculosis, VREF, Other Psych: No: Addictions, Anxiety, Bipolar, Depression, Panic, Psychosis, Schizophrenia, Other Musculoskeletal: No: Bursitis, Chronic low back pain, Hemiparesis, Hemiplegia, Osteoarthritis, Paraplegia, Other Rheumatology: No: Fibromyalgia, Gout, Lupus, Rheumatoid Arthritis, Sarcoidosis, Vasculitis, Other ENT: No: Allergic Rhinitis, Sinusitis, Other Endocrine: No: [place]'s Disease, Rand's Disease, Diabetes Insipidus, Diabetes Mellitus, Hyperparathyroidism, Hyperthyroidism, Hypothyroidism, Osteopenia, SIADH, Other Dermatology: No: Basal Cell, Cellulitis, Eczema, Melanoma, Psoriasis, Squamous Cell, Other - Past Surgical History Past Surgical History: No: None, AAA Repair, AICD, Amputation, Appendectomy, Arthrosocopy, AV Fistula/Graft, Bariatric Surgery, Breast Biopsy, Bypass, CABG, Carotid Endarterectomy, Cataract Removal, Cholecystectomy, Colectomy, Colonoscopy, Colostomy, Craniotomy, , Cystectomy, Hernia Repair, Hysterectomy, Ileal Conduit, Ileosotomy, Joint Replacement, Kidney Transplant, Laminectomy, Liver Transplant, Mastectomy, Nephrectomy, Oopherectomy, Orchiectomy, Permanent Pacemaker, Prostatectomy, Splenectomy, Stent, Thoracotomy , TURP, Tonsillectomy, Tubal Ligation, Upper Endoscopy, Valve Replacement, Vasectomy, Vein Stripping/Ligation Hx Myomectomy: No Hx Transabdominal Cerclage: No Additional Surgical History: Previous C/S - Smoking History Smoking history: Never smoked Have you smoked in the past 12 months: No Aproximately how many cigarettes per day: 2 - Alcohol/Substance Use Hx Alcohol Use: No History of Substance Use: reports: None - Social History History of Recent Travel: No Home Medications - Allergies Allergies/Adverse Reactions: Allergies Allergy/AdvReac Type Severity Reaction Status Date / Time No Known Allergies Allergy Verified 08/31/18 14:45 - Home Medications Home Medications: Ambulatory Orders Vit Calc,Iron,Folic [ Vitamins] 1 each PO DAILY 01/19/17 Family Disease History - Family Disease History Family History: Unremarkable Review of Systems - Review of Systems Constitutional: reports: No Symptoms Eyes: reports: No Symptoms HENT: reports: No Symptoms Neck: reports: No Symptoms Cardiovascular: reports: No Symptoms Respiratory: reports: No Symptoms, Other (nasal congestion) Gastrointestinal: reports: No Symptoms Genitourinary: reports: No Symptoms Breasts: reports: Other Musculoskeletal: reports: No Symptoms Integumentary: reports: No Symptoms Neurological: reports: No Symptoms Endocrine: reports: No Symptoms Hematology/Lymphatic: reports: No Symptoms Psychiatric: reports: No Symptoms 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 - Maternity Vital Signs: Vital Signs Temperature 97.7 F 02/10/19 07:44 Pulse Rate 95 H 02/10/19 07:44 Respiratory Rate 20 02/10/19 07:44 Blood Pressure 122/75 02/10/19 07:44 O2 Sat by Pulse Oximetry (%) Constitutional: Yes: Well Nourished HENT: Yes: Atraumatic, Normocephalic Neck: Yes: Supple, Tenderness Breast(s): Yes: Other (deferred) - Abdominal Exam/OB Category: I Accelerations: Uniform Decelerations: None - Vaginal Exam/OB Vaginal Bleediing: No - 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 Musculoskeletal: Yes: WNL Edema: LLE: 1+, RLE: 1+ Deep Tendon Reflex Grade: Normal +2 ...Motor Strength: WNL Psychiatric: Yes: Alert, Oriented - Labs Lab Results: reviewed Imaging - Results Ultrasound: Report Reviewed Assessment/Plan 23 y/o @ 39wks gestation, prior C/S x1 presenting for scheduled RCS, risks and complications of procedure discussed and all questions answered. Informed consent obtained -Proceed with surgery
[2019-02-10 09:19] LABS: INR 0.88 (0.83-1.09); PROTHROMBIN TIME (PATIENT) 10.4 SEC (9.7-13.0)
[2019-02-10 09:22] LABS: ACTIVATED PTT 28.5 SECONDS (25.2-36.5)
[2019-02-10] MEDS ORDERED: PHENYLEPHRINE HCL 10 MG/1 ML SINGLE DOSE VIAL ONE (09:26)
[2019-02-10] MEDS ORDERED: morphine SULFATE/PF 0.5 MG/ML (2cc Syringe - QUVA) ONE (09:26)
[2019-02-10] MEDS ORDERED: ceFAZolin SODIUM 1 GM VIAL ONE (09:26)
[2019-02-10] MEDS ORDERED: ONDANSETRON 4 MG/2 ML VIAL IVPUSH PRN (09:42)
[2019-02-10] MEDS ORDERED: MIDAZOLAM HCL 2 MG/2 ML SINGLE DOSE VIAL ONE (10:07)
[2019-02-10] MEDS ORDERED: IBUPROFEN 600 MG TABLET (FP) PO PRN (10:53)
[2019-02-10] MEDS ORDERED: SENNOSIDES/DOCUSATE COMBO (SENNA PLUS) TABLET (UD) PO PRN (10:53)
[2019-02-10] MEDS ORDERED: ACETAMINOPHEN 325 MG TABLET (FP) PO PRN (10:53)
[2019-02-10] MEDS ORDERED: OXYTOCIN 20 UNITS in 0.9% NS 20 UNIT/1,000 ML INFUS.BAG IV SCH (11:05)
[2019-02-10] MEDS ORDERED: IBUPROFEN 800 MG/8 ML IJ IVPB ONE ×2 (11:07→12:45)
--- NOTE | 2019-02-10 11:10 | OP ---
Operative Note - Note: Operative Date: 02/10/19 (Dic#[id number]) Pre-Operative Diagnosis: Prior C/S Operation: RTLCS Findings: see dictation Post-Operative Diagnosis: Same as Pre-op Surgeon: Vic Garcia Anesthesia: Spinal Estimated Blood Loss (mls): 150 Drains, Volume Out (mls): 150 Fluid Volume Replaced (mls): 1,200 Operative Report Dictated: Yes
[2019-02-10] MEDS: IBUPROFEN 600 MG TABLET (FP) PO PRN (15:13)
[2019-02-10] MEDS: ACETAMINOPHEN 325 MG TABLET (FP) PO PRN (15:13)
[2019-02-10] MEDS: SIMETHICONE 80 MG TAB.CHEW (FP) PO PRN (15:13)
--- NOTE | 2019-02-10 15:16 | OP ---
DATE OF OPERATION: 02/10/2019 PREOPERATIVE DIAGNOSIS: A 23-year-old 2, para 1 at 39 weeks' gestation, prior section x1, desiring repeat section. POSTOPERATIVE DIAGNOSIS: A 23-year-old 2, para 1 at 39 weeks' gestation , prior section x1, desiring repeat section. PROCEDURE: Repeat low transverse section. SURGEON: Carmelo Beltran MD VOLUNTEER SPECIALIST: CODY Reese COMPLICATIONS: None. ANESTHESIA: Spinal. ESTIMATED BLOOD LOSS FOR THE PROCEDURE: 700 mL INTRAVENOUS FLUIDS: Crystalloid 1200 mL. URINE OUTPUT: Clear urine 150 mL. FINDINGS: Low abdomen scar consistent with prior section and moderate amount of subcutaneous adipose tissue. The fascia was slightly thickened and slightly adherent to the underlying rectus muscles. The rectus muscles were fused in the midline. No parietal peritoneal visceral adhesions noted. The bladder was slightly adherent to the lower uterine segment. Infant in cephalic presentation. Clear amniotic fluid. No nuchal cord present. Bladder dome rectus muscle fascia interface was noted to be dry with no evidence of active bleeding. PROCEDURE: The patient was taken to the operating room where spinal anesthesia was found to be adequate. She was then prepped and draped in the normal sterile fashion. Ridley catheter was placed atraumatically. Appropriate timeout took place. A Pfannenstiel skin incision was made following the prior section scar. The incision was carried to the underlying fascia with the Bovie. The fascia was dissected in the midline. The incision was extended laterally with sharp dissection. The underlying rectus muscles were dissected off bluntly and sharply without difficulty. The rectus muscles were fused in the midline and they were elevated with Allis clamps and transected sharply superiorly. Entry into the peritoneal cavity revealed no evidence of adhesions at the point of entry. The incision was extended superiorly and inferiorly without difficulty. The incision was extended laterally with blunt dissection. Bladder blade was placed and the lower uterine segment was noted not to be effaced. The lower uterine segment transverse incision was made with the scalpel and extended laterally with blunt dissection. Amniotomy revealed clear amniotic fluid. Infant in cephalic presentation. Infant was delivered through the surgical incision with mild fundal pressure without difficulty. Umbilical cord was clamped and cut after delay. Samples for blood were obtained. The was handed off to the awaiting NICU staff. The placenta was delivered manually and intact. The uterus was exteriorized, and the intrauterine cavity was cleared of all clots and debris. Lower uterine segment incision was approximated with 1.0 Polysorb running locked sutures, with excellent structure approximation and hemostasis achieved. Uterus , bilateral tubes and ovaries were consistent with normal anatomy. The uterus was internalized to the pelvic cavity and the gutters were cleared off all clots and debris. Inspection of the lower uterine segment incision revealed again with excellent hemostasis. Bladder dome and rectus muscle interface inspected and the findings are documented above. The fascial incision was approximated with 0 Polysorb sutures in a running non-locked manner. Excellent approximation achieved and confirmed by digital palpation by the surgeon. Subcutaneous tissues were copiously irrigated and bleeders neutralized with Bovie cautery. Subcutaneous tissues were approximated with 0 chromic subcutaneous sutures. The skin incision was reapproximated with surgical denia. Excellent hemostasis at the end of the procedure. Patient tolerated the procedure well and the instrument counts were reported as correct x2 by the staff. CARMELO BELTRAN MD [id number] RHONDA
[2019-02-11] MEDS: SIMETHICONE 80 MG TAB.CHEW (FP) PO PRN ×4 (03:34→19:55)
[2019-02-11] MEDS: ACETAMINOPHEN 325 MG TABLET (FP) PO PRN ×3 (03:34→17:09)
[2019-02-11] MEDS: IBUPROFEN 600 MG TABLET (FP) PO PRN ×3 (03:35→17:09)
--- NOTE | 2019-02-11 07:59 | PN ---
Post Progress Note - Subjective Subjective: Ambulating, ontiveros is out and s/p voiding trial, lochia decreased, bottle feeding Post Day: 1 Type of Delivery: Repeat C/S Vital Signs: Vital Signs Temperature 98.0 F 02/11/19 02:00 Pulse Rate 80 02/11/19 02:00 Respiratory Rate 18 02/11/19 07:00 Blood Pressure 120/70 02/11/19 02:00 O2 Sat by Pulse Oximetry (%) 100 02/10/19 11:15 Breast Exam: Yes: Other (deferred) Uterus: Yes: Fundus Firm Incision: Yes: [place] intact (dressing removed and incision intact with denia in place) Abdomen/GI: Yes: Abdomen soft Lochia, amount: Small Extremities: Yes: Calves non-tender Activity: Ambulating - Labs Labs: pending in AM Assessment/Plan POD # 1 S/P uncomplicated LTRCS, dressing removed, PP/post-op precautions discussed -Continue PP/post-op care -F/U AM CBC -encourage ambulation
[2019-02-11 08:29] LABS: BASO % 0.3 % (0-2.0); EOS % 1.7 % (0-4.5); HEMATOCRIT 31.9 % (32.4-45.2); HEMOGLOBIN 10.6 GM/dL (10.7-15.3); MCH 28.9 pg (25.7-33.7); MCHC 33.3 g/dl (32.0-36.0); MEAN CELL VOLUME 86.8 fl (80-96); MEAN PLT VOLUME 8.3 fl (7.5-11.1); MONO % 6.6 % (3.8-10.2); NEUT % 77.4 % (42.8-82.8); PLATELET COUNT 225 K/MM3 (134-434); RBC 3.68 M/mm3 (3.60-5.2); RDW 13.6 % (11.6-15.6); WHITE BLOOD COUNT 14.2 K/mm3 (4.0-10.0)
--- NOTE | 2019-02-11 09:20 | PN ---
Progress Note (short form) - Note Progress Note: S: no c/o O: VAS 3/10 A/P: POD 1 s/p C/S. cont pain med as ordered. cont current care. no anesth comps
[2019-02-11] MEDS ORDERED: BISACODYL 10 MG SUPP.RECT RC PRN (10:53)
[2019-02-11] MEDS: oxyCODONE HCL 5 MG TABLET PO PRN ×2 (12:06→19:54)
[2019-02-11] MEDS: diphenhydrAMINE HCL 25 MG CAPSULE (FP) PO PRN (22:40)
[2019-02-12] MEDS: SIMETHICONE 80 MG TAB.CHEW (FP) PO PRN ×4 (00:02→20:47)
[2019-02-12] MEDS: oxyCODONE HCL 5 MG TABLET PO PRN ×4 (00:02→20:47)
[2019-02-12] MEDS: IBUPROFEN 600 MG TABLET (FP) PO PRN ×4 (00:03→20:49)
[2019-02-12] MEDS: ACETAMINOPHEN 325 MG TABLET (FP) PO PRN (01:02)
--- NOTE | 2019-02-12 07:45 | PN ---
Progress Note (short form) - Note Progress Note: pod 2 s/p c/s , c/o cramps, no excess vaginal bleeding, passing gas CBC, BMP 02/11/19 07:15 Last Vital Signs Temp Pulse Resp BP Pulse Ox 98.6 F 98 H 18 121/55 L 100 02/11/19 22:00 02/11/19 22:00 02/11/19 22:00 02/11/19 22:00 02/10/19 11:15 abdomen soft, no distension , no cva uterus firm, non tender lochia mild no calf tenderness impression pod 2 ,doing well plan ambulate , pain management cbc in am
[2019-02-12] MEDS: diphenhydrAMINE HCL 25 MG CAPSULE (FP) PO PRN ×2 (12:58→23:35)
--- NOTE | 2019-02-12 18:15 | PATH ---
Surgical Pathology Report Patient Name: LITZY SINGH Med. Rec. 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 Electronically Signed Beulah Lou M.D. Gross Description The specimen is received fresh labeled placenta and is a 593 gram, 20 x 19 x 1.5 cm. placenta with attached membranes and umbilical cord. The attached membranes are clear and translucent and insert marginally. The umbilical cord measures 30 cm. in length and averages 1.5 cm. in diameter. The cord inserts eccentrically, 4 cm. to the nearest margin. No true knots or strictures are identified. Cut surface of the umbilical cord reveals 3 vessels. The surface is arias-blue with minimal fibrin deposition and appropriate caliber vessels. The maternal surface is red-brown with focal defects. Sectioning reveals red-brown, spongy parenchyma. No lesions are identified. Block Feeder sections are submitted in three cassettes as follows: 1- membrane rolls and umbilical cord; 2-3- full thickness sections of placenta. MLSZ/02/11/2019 sanml/02/11/2019
[2019-02-13] MEDS: SIMETHICONE 80 MG TAB.CHEW (FP) PO PRN ×2 (02:17→07:44)
[2019-02-13] MEDS: IBUPROFEN 600 MG TABLET (FP) PO PRN ×2 (02:17→07:40)
[2019-02-13] MEDS: oxyCODONE HCL 5 MG TABLET PO PRN (02:18)
[2019-02-13 07:05] LABS: BASO % 0.3 % (0-2.0); EOS % 4.7 % (0-4.5); HEMATOCRIT 30.3 % (32.4-45.2); HEMOGLOBIN 10.2 GM/dL (10.7-15.3); LYMPH % 27.7 % (8-40); MCH 29.3 pg (25.7-33.7); MCHC 33.7 g/dl (32.0-36.0); MEAN CELL VOLUME 86.8 fl (80-96); MEAN PLT VOLUME 8.1 fl (7.5-11.1); MONO % 7.9 % (3.8-10.2); NEUT % 59.4 % (42.8-82.8); PLATELET COUNT 253 K/MM3 (134-434); RBC 3.49 M/mm3 (3.60-5.2); WHITE BLOOD COUNT 9.1 K/mm3 (4.0-10.0)
[2019-02-13] MEDS: ACETAMINOPHEN 325 MG TABLET (FP) PO PRN (07:43)
[2019-02-13 08:06] VITALS: BP 129/60; PULSE 95; TEMP 97.7
--- NOTE | 2019-02-13 10:00 | DS ---
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ination Vital Signs: Vital Signs Temperature 97.7 F 02/13/19 08:01 Pulse Rate 95 H 02/13/19 08:01 Respiratory Rate 20 02/13/19 08:01 Blood Pressure 129/60 02/13/19 08:01 O2 Sat by Pulse Oximetry (%) 100 02/10/19 11:15 Findings/Remarks: Patient is doing well, ambulating, tolerating PO, lochia decreased, bottle feeding. PP/post-op precautions discussed and all questions answered Constitutional: Yes: Calm HENT: Yes: Atraumatic, Normocephalic Neck: Yes: Supple Cardiovascular: Yes: Regular Rate and Rhythm Respiratory: Yes: Regular Gastrointestinal: Yes: Soft ...Rectal Exam: Yes: Deferred Breast(s): Yes: Other (deferred) Extremities: Yes: WNL Edema: Yes Edema: LLE: Trace, RLE: Trace Integumentary: Yes: WNL Wound/Incision: Yes: Well Approximated, Alina Intact (no evidence of infection ) Neurological: Yes: Oriented ...Motor Strength: WNL Psychiatric: Yes: Alert, Oriented Labs: CBC, BMP 02/13/19 06:32 Discharge Summary Reason For Visit: C SECTION uncomplicated delivery Procedures: Principal: [facility] Hospital Course: uncomplicated surgery and recovery Condition: Stable - Instructions Diet, Activity, Other Instructions: Please return to regular diet and activity as tolerated. Follow up within 1 week for incision check. Call MD with any questions or concerns Referrals: Vic Garcia MD [Staff Physician] - Disposition: HOME - Home Medications Comprehensive Discharge Medication List: Ambulatory Orders Vit Calc,Iron,Folic [ Vitamins] 1 each PO DAILY 01/19/17
== END 2019-02-13 11:40 | disposition home or self-care (01) | DRG 540 ==
LOC: JLDR 07:00 → J3W 11:57
PROVIDERS: ADMIT Student in an Organized Health Care Education/Training Program; ATTEND Student in an Organized Health Care Education/Training Program
PROC: 10D00Z1 Extraction of Products of Conception, Low, Open Approach (ICD-10-PCS; principal; 2019-02-10)
DX: O34.211 Maternal care for low transverse scar from previous cesarean delivery (principal); Z3A.39 39 weeks gestation of pregnancy; Z37.0 Single live birth
CPT/HCPCS: 36415; 85025; 85610; 85730; 88307-TC

== ENCOUNTER 2020-04-24 16:44 | Emergency (ER) | payer OTHER ==
[2020-04-24 16:47] VITALS: BP 130/76; PULSE 115; TEMP 97.9; BMI 24.3
== END 2020-04-24 19:38 | disposition home or self-care (01) ==
LOC: JER 16:44
DX: O03.9 Complete or unspecified spontaneous abortion without complication (principal)
CPT/HCPCS: 99283-25

== ENCOUNTER 2025-02-27 18:31 | Emergency (ER) | payer OTHER ==
[2025-02-27 18:36] VITALS: RESP 18; TEMP 98.2; BMI 22.6
[2025-02-27 20:18] LABS: ABSOLUTE IMMATURE GRANULOCYTES 0.02 x10^3/uL (0.0-0.031); BASOPHILS # 0.05 x10^3/uL (0.01-0.08); EOSINOPHIL % 2.7 % (0.7-5.8); EOSINOPHILS # 0.14 x10^3/uL (0.04-0.36); MCHC 32.8 g/dl (32.2-35.5); MEAN CELL VOLUME 90.5 fl (79.4-94.8); MEAN PLT VOLUME 10.5 fl (9.4-12.3); MONOCYTE # 0.39 x10^3/uL (0.24-0.86); MONOCYTE % 7.6 % (4.7-12.5); RDW 14.1 % (12.1-16.5)
[2025-02-27 20:20] LABS: INR 1.01 (0.83-1.09); PROTHROMBIN TIME (PATIENT) 11.1 SEC (9.7-13.0)
[2025-02-27] MEDS ORDERED: ACETAMINOPHEN INJECTION 100 ML ONE (20:20)
[2025-02-27 20:23] LABS: ACTIVATED PTT 30.2 SECONDS (25.2-36.5)
[2025-02-27 20:25] LABS: GLUCOSE,RANDOM 88.0 mg/dL (74-106); TOT PROT 7.6 g/dl (6.4-8.2)
[2025-02-27] MEDS: ACETAMINOPHEN 1000 MG/100 ML BAG IVPB ONE (20:26)
[2025-02-27 20:27] LABS: CO2 24.0 mmol/L (21-32)
[2025-02-27 20:28] LABS: ALK PHOS 43.0 U/L (40-150)
[2025-02-27 20:31] LABS: CREATININE 0.58 mg/dL (0.55-1.3); SGOT/AST 27.0 U/L (5-34); SGPT/ALT 14.0 U/L (0-55)
[2025-02-27 20:50] LABS: HCG,QUALITATIVE URINE Positive; URINE APPEARANCE TURBID; URINE BILIRUBIN NEGATIVE (NEGATIVE); URINE COLOR YELLOW; URINE GLUCOSE (UA) NEGATIVE (NEGATIVE); URINE KETONE TRACE (NEGATIVE); URINE LEUK ESTERASE NEGATIVE (NEGATIVE); URINE NITRITE NEGATIVE (NEGATIVE); URINE PROTEIN NEGATIVE (NEGATIVE); URINE UROBILINOGEN 1.0 mg/dL (0.2-1.0)
[2025-02-27 21:30] LABS: HCV DIAGNOSTIC IN-HOUSE W/RFLX NON-REACTIVE (NONREACTIVE); HIV INTERPRETATION NEGATIVE (NEGATIVE)
[2025-02-27 22:30] VITALS: BP 115/70; PULSE 79
== END 2025-02-27 23:32 | disposition home or self-care (01) ==
LOC: JER 18:31
DX: O26.851 Spotting complicating pregnancy, first trimester (principal); O26.891 Other specified pregnancy related conditions, first trimester; R10.32 Left lower quadrant pain; R11.0 Nausea; Z3A.00 Weeks of gestation of pregnancy not specified
CPT/HCPCS: 36415; 76817-TC; 80053; 81003; 84702; 84703; 85025; 85610; 85730; 86803; 86850; 86900; 86901; 87086; 87389; 99284-25